=== PATIENT | male | born 1985 | race Caucasian/White ===

== ENCOUNTER → 2020-10-23 | Day surgery (SDC) | payer OTHER ==
[~2020-10-23] MED LIST: CELE200C PO
[2020-10-23 11:04] VITALS: BP 140/88
== END ==
LOC: SURG 10:55
PROVIDERS: ATTEND Anesthesiology
DX: G43.709 Chronic migraine without aura, not intractable, without status migrainosus (principal); M54.5 Low back pain; Z79.899 Other long term (current) drug therapy; Z98.52 Vasectomy status; Z98.890 Other specified postprocedural states
CPT/HCPCS: 99213; G0463

== ENCOUNTER 2021-05-03 17:44 | Emergency (ER) | payer OTHER ==
[~2021-05-03] VITALS: Ht 157.5 cm; Wt 100.0 kg
[2021-05-03 18:00] VITALS: BP 152/94
[2021-05-03] MEDS ORDERED: KETOROLAC 60 MG/2 ML VIAL. IM ONE (18:45)
[2021-05-03] MEDS ORDERED: DEXAMETHASONE SOD PHOS 10 MG/ML VIAL. IM ONE (18:45)
[2021-05-03] MEDS ORDERED: CYCLOBENZAPRINE 10 MG TABLET. PO ONE (18:45)
--- NOTE | 2021-05-03 20:02 | PHYS DOC ---
Past History Additional Past Medical Histor: back pain (TOMÁS JACKSON APRN) Past Surgical History: No Surgical History (TOMÁS JACKSON APRN) Alcohol Use: Occasionally (TOMÁS JACKSON APRN) General Adult EDM: Chief Complaint: BACK PAIN OR INJURY HPI: HPI: Patient is a 35-year-old male who presents with chronic back pain. Patient states he was picking up a box when he injured his back. Denies saddle anesthesia. Denies urinary retention or loss of bowel. Is taking thing at home prior to arrival. Patient's only history is chronic back pain. (TOMÁS JACKSON APRN) Review of Systems: Review of Systems: ROS At least 10 ROS systems have been reviewed and are negative except as documented in the HPI. General: Negative except as outlined in HPI above. Skin: Negative except as outlined in HPI above. HEENT: Negative except as outlined in HPI above. Neck: Negative except as outlined in HPI above. Respiratory: Negative except as outlined in HPI above.. Cardiovascular: Negative except as outlined in HPI above. Abdomen: Negative except as outlined in HPI above. : Negative except as outlined in HPI above. Back/MSK: Negative except as outlined in HPI above. Neuro: Negative except as outlined in HPI above. Psych: Negative except as outlined in HPI above. (TOMÁS JACKSON APRN) Current Medications: Current Meds: Current Medications Medications (Trade) Dose Ordered Sig/German Start Time Stop Time Status Last Admin Dose Admin Cyclobenzaprine HCl (Flexeril) 10 mg 1X ONCE 05/03/21 18:45 05/03/21 18:46 DC 05/03/21 19:10 10 MG Dexamethasone Sodium Phosphate (Decadron) 10 mg 1X ONCE 05/03/21 18:45 05/03/21 18:46 DC 05/03/21 19:10 10 MG Ketorolac Tromethamine (Toradol Im) 60 mg 1X ONCE 05/03/21 18:45 05/03/21 18:46 DC 05/03/21 19:10 60 MG (TOMÁS JACKSON APRN) Allergies: Allergies: Allergies Uncoded Allergies Type Severity Reaction Last Updated Verified PCN Allergy Severe 10/23/20 (TOMÁS JACKSON APRN) Physical Exam: PE: Constitutional: Well developed, well nourished, no acute distress, non-toxic appearance. [] HENT: Normocephalic, atraumatic, bilateral external ears normal, oropharynx moist, no oral exudates, nose normal. [] Eyes: PERRLA, EOMI, conjunctiva normal, no discharge. [] Neck: Normal range of motion, no tenderness, supple, no stridor. [] Cardiovascular:Heart rate regular rhythm, no murmur [] Lungs & Thorax: Bilateral breath sounds clear to auscultation [] Abdomen: Bowel sounds normal, soft, no tenderness, no masses, no pulsatile masses. [] Skin: Warm, dry, no erythema, no rash. [] Back: Lower back tenderness Extremities: No tenderness, no cyanosis, no clubbing, ROM intact, no edema. [] Neurologic: Alert and oriented X 3, normal motor function, normal sensory function, no focal deficits noted. [] Psychologic: Affect normal, judgement normal, mood normal. [] (TOMÁS JACKSON APRN) Current Patient Data: Vital Signs: Vital Signs Date Time Temp Pulse Resp B/P (MAP) Pulse Ox O2 Delivery O2 Flow Rate FiO2 05/03/21 18:00 98.1 65 17 152/94 (113) 98 Room Air (TOMÁS JACKSON APRN) EKG: EKG: [] (TOMÁS JACKSON APRN) Radiology/Procedures: Radiology/Procedures: [] (TOMÁS JACKSON APRN) Heart Score: C/O Chest Pain: No Risk Factors: Risk Factors: DM, Current or recent (<one month) smoker, HTN, HLP, family history of CAD, obesity. Risk Scores: Score 0 - 3: 2.5% MACE over next 6 weeks - Discharge Home Score 4 - 6: 20.3% MACE over next 6 weeks - Admit for Clinical Observation Score 7 - 10: 72.7% MACE over next 6 weeks - Early Invasive Strategies (TOMÁS JACKSON APRN) Course & Med Decision Making: Course & Med Decision Making Pertinent Labs and Imaging studies reviewed. (See chart for details) [] 35-year-old male presents with chronic back pain. Patient has a history of chronic back pain and gets injections done. Denies saddle anesthesia, no urinary retention or loss of bowel. Work-up in ER consist of IM Toradol, IM Flexeril, IM Decadron. Patient states he will follow up with his doctor next week for further injections. Patient is appreciative and okay with discharge plan. (TOMÁS JACKSON APRN) Chely Disclaimer: Chely Disclaimer: This electronic medical record was generated, in whole or in part, using a voice recognition dictation system. (TOMÁS JACKSON APRN) Attending Co-Sign The patient was seen and interviewed as well as examined at the bedside. The chart was reviewed. The case was discussed. Agree with the plan of care. (JEROD ADAMES DO) Departure Departure: Impression: Primary Impression: Back pain Qualified Codes: M54.50 - Low back pain, unspecified Disposition: HOME / SELF CARE / HOMELESS Condition: STABLE Referrals: PCP,UNKNOWN (PCP) Patient Instructions: Back Pain, Adult Additional Instructions: You were treated with Toradol, Flexeril, Decadron. Follow-up with your PCP for further. I am sending a prescription for muscle relaxer as well. Ibuprofen and Tylenol at home. Ice to the area. Return emergency room if you have worsening symptoms or concerns such as numbness and tingling, loss of bowel or bladder. EMERGENCY DEPARTMENT GENERAL DISCHARGE INSTRUCTIONS Thank you for coming to [facility] (ED) today and trusting us with you care. We trust that you had a positivie experience in our Emergency Department. If you wish to speak to the department management, you may call the director at [phone]. YOUR FOLLOW UP INSTRUCTIONS ARE FOLLOWS: 1. Do you have a private Doctor? If you do not have a private doctor, please ask for a resource list of physicians or clinics that may be able to assist you with follow up care. 2. The Emergency Physician has interpreted your x-rays. The X-Ray specialist will also review them. If there is a change in the findings, you will be notified in 48 hours when at all possible. 3. A lab test or culture has been done, your results will be reviewed and you will be notified if you need a change in treatment. ADDITIONAL INSTRUCTIONS AND INFORMATION: 1. Your care today has been supervised by a physician who is specially trained in emergency care. Many problems require more than one evaluation for a complete diagnosis and treatment. We recommend that you schedule your follow up appointment as recommended to ensure complete treatment of you illness or injury. If you are unable to obtain follow up care and continue to have a problem, or if your condition worsens, we recommend that you return to the ED. 2. We are not able to safely determine your condition over the phone nor are we able to give sound medical advice over the phone. For these safety reasons, if you call for medical advice we will ask you to come to the ED for further evaluation. 3. If you have any questions regarding these discharge instructions please call the ED at [phone]. SAFETY INFORMATION: In the interest of safety, wellness, and injury prevention; we encourage you to wear your sealbelt, if you smoke; quite smoking, and we encourage family to use a protective helmet for bicycling and other sporting events that present an increased risk for head injury. IF YOUR SYMPTOMS WORSEN OR NEW SYMPTOMS DEVELOP, OR YOU HAVE CONCERNS ABOUT YOUR CONDITION; OR IF YOUR CONDITION WORSENS WHILE YOU ARE WAITING FOR YOUR FOLLOW UP APPOINTMENT; EITHER CONTACT YOUR PRIMARY CARE DOCTOR, THE PHYSICIAN WHOSE NAME AND NUMBER YOU WERE GIVEN, OR RETURN TO THE ED IMMEDIATELY. TOMÁS JACKSON APRN May 03, 2021 20:02 JEROD ADAMES DO May 05, 2021 04:29
== END 2021-05-03 20:20 | disposition home or self-care (01) ==
LOC: ER 17:44
DX: M54.59 Other low back pain (principal); Z88.0 Allergy status to penicillin
CPT/HCPCS: 96372; 99284; J1100; J1885